=== PATIENT | male | born 1945 | race African-American/Black ===

== ENCOUNTER 2020-09-03 14:38 | Emergency (ER) | payer MEDICARE, OTHER ==
[~2020-09-03] VITALS: Ht 177.8 cm; Wt 100.7 kg
[2020-09-03 14:53] VITALS: BP_SYST 165
[2020-09-03] MEDS ORDERED: BACITRACIN 1 GM OINT TP ONE (15:45)
[2020-09-03] MEDS ORDERED: LIDOCAINE 1% 10 MG/ML, 20 ML MDV INJ ONE (15:45)
[2020-09-03] MEDS ORDERED: DIPH-TET-PERTUS Vaccine 0.5 ML VIAL (ADACEL) I.M. ONE (15:45)
[2020-09-03] MEDS ORDERED: LIDOCAINE 1%, 20 ML MDV 20 ML ONE (15:46)
[2020-09-03 16:42] VITALS: BP_SYST 148
== END 2020-09-03 16:42 | disposition home or self-care (01) ==
LOC: SED 14:38
DX: S61.411A Laceration without foreign body of right hand, initial encounter (principal); W45.8XXA Other foreign body or object entering through skin, initial encounter; Y93.89 Activity, other specified; Y92.89 Other specified places as the place of occurrence of the external cause; Y99.8 Other external cause status
CPT/HCPCS: 12001; 90471; 90715; 99283; J2001

== ENCOUNTER 2020-09-09 11:17 | Emergency (ER) | payer MEDICARE, OTHER ==
[~2020-09-09] VITALS: Ht 177.8 cm; Wt 100.2 kg
--- NOTE | 2020-09-09 11:20 | NUR ---
Patient to ER bed 07 to gown for evaluation. Side rails up.
[2020-09-09 11:21] VITALS: BP_SYST 162
--- NOTE | 2020-09-09 11:22 | NUR ---
Dr Mcpherson evaluating patient at bedside
--- NOTE | 2020-09-09 11:22 | NUR ---
Pt brought by self for wound check after laceration repair on R hand, no s/s of infections noted, will cont to monitor.
[2020-09-09] MEDS ORDERED: POLYEYEO EACH EYE (11:34)
[2020-09-09 11:52] VITALS: BP_SYST 162
--- NOTE | 2020-09-09 11:53 | NUR ---
Patient given written and verbal discharge instructions and verbalizes understanding. ER MD discussed with patient the results and treatment provided. Patient in stable condition. ID arm band removed. No Rx given. Patient educated on pain management and to follow up with PMD. Pain Scale 0/10. Opportunity for questions provided and answered. Medication side effect fact sheet provided.
[2020-09-09] MEDS ORDERED: BACTROBAN TP (12:00)
== END 2020-09-09 11:53 | disposition home or self-care (01) ==
LOC: SED 11:17
DX: S61.411D Laceration without foreign body of right hand, subsequent encounter (principal); I10 Essential (primary) hypertension; I25.10 Atherosclerotic heart disease of native coronary artery without angina pectoris; Z79.899 Other long term (current) drug therapy; W45.8XXD Other foreign body or object entering through skin, subsequent encounter
CPT/HCPCS: 99281

== ENCOUNTER 2020-09-14 10:51 | Emergency (ER) | payer MEDICARE, OTHER ==
[~2020-09-14] VITALS: Ht 177.8 cm; Wt 109.3 kg
[~2020-09-14 10:51] MED LIST: BACTROBAN TP
[2020-09-14 10:59] VITALS: BP_SYST 138
[2020-09-14 11:46] VITALS: BP_SYST 138
== END 2020-09-14 11:47 | disposition home or self-care (01) ==
LOC: SED 10:51
DX: S61.411D Laceration without foreign body of right hand, subsequent encounter (principal); I10 Essential (primary) hypertension; Z48.02 Encounter for removal of sutures; Z79.899 Other long term (current) drug therapy; W45.8XXD Other foreign body or object entering through skin, subsequent encounter
CPT/HCPCS: 99281